=== PATIENT | male | born 1965 | race Caucasian/White ===

== ENCOUNTER 2023-03-14 09:51 | Emergency (ER) | payer OTHER, SELFPAY ==
[2023-03-14] VITALS (7 sets, daily range): BP systolic 119–176; BP diastolic 80–107; PULSE 85–108; RESP 15–19; TEMP 37–38.3; O2SAT 95–98; BMI 30.1
--- NOTE | 2023-03-14 | ECG_ITS ---
Test Reason : HEADACHE Blood Pressure : / mmHG Vent. Rate : 093 BPM Atrial Rate : 093 BPM P-R Int : 146 ms QRS Dur : 096 ms QT Int : 376 ms P-R-T Axes : 033 -36 059 degrees QTc Int : 467 ms Normal sinus rhythm Left axis deviation Moderate voltage criteria for LVH, may be normal variant ( R in aVL , Alonso product ) Abnormal ECG No previous ECGs available Referred By: Generic ED Physician Electronically Signed By:CLAUDETTE MANE
--- NOTE | ~2023-03-14 | XR_ITS ---
EXAMINATION: XR CHEST CLINICAL INFORMATION: Cough and fever. COMPARISON: 05/03/2015 TECHNIQUE: Frontal view of the chest was obtained. FINDINGS: The lungs are well expanded. No focal consolidation. No pleural effusion. Cardiac silhouette is unchanged. XR/XR chest 1V IMPRESSION: No acute abnormality.
--- NOTE | ~2023-03-14 | CT_ITS ---
EXAMINATION: CT HEAD WITHOUT CONTRAST CLINICAL INFORMATION: [place] headache. COMPARISON: None available. TECHNIQUE: Contiguous axial imaging was performed from the skull base to vertex without intravenous administration of contrast. This CT examination was performed using dose optimization techniques as appropriate, variously including the following: *Automated exposure control *Adjustment of mA and/or kV according to patient size (this includes techniques or standardized protocols for targeted exams where dose is matched to indication/reason for exam; i.e. extremities or head) *Use of iterative reconstruction technique DLP: 724 mGy-cm FINDINGS: There is no acute intra-axial, extra-axial bleed, masses or midline shift. There is no acute infarction in evolution. There is no edema. The frost to white matter differentiation is maintained normal. The lateral ventricles are symmetrical in size and configuration without enlargement. Bone windows reveal no calvarial abnormality. The paranasal sinuses and mastoid air cells are well-aerated. There is no scalp soft tissue abnormality. CT/CT head/brain wo IV con IMPRESSION: No acute intracranial process seen.
--- NOTE | 2023-03-14 11:07 | ED_ITS ---
HPI - Syncope General Chief Complaint: Dizziness Stated Complaint: SYNCOPAL EPISODE BACK PAIN Time Seen by Provider: 03/14/23 10:37 Source: patient and family Mode of arrival: EMS Limitations: no limitations History of Present Illness HPI narrative: 58 yo male with PMH of HTN who has been ill for the last 5 days with chills, diffuse back pain, sore throat and poor PO intake. He has also had a persistent headache that will not go away with tylenol. He is vaccinated against COVID and the flu. He has been drinking a lot of coffee and last night drank coffee before bed then still having the headache and heat feeling in his head at 3am had more coffee. This AM while shaving he felt so weak that he almost passed out x 2 and had to lay himself down on the ground. He did not have a LOC. He cannot get comfortable. He denies urinary symptoms, IVDA and has no indwelling hardware. He notes a bruise x 2 (not petechia on R posterior ribs) denies trauma. MD complaint: almost passed out Onset (ago): hour(s) (1) -: second(s) Prodromal symptoms: lightheaded Witnessed: No Context: standing up Injuries sustained associated with event: none Current symptoms: headache and weakness Treatments prior to arrival: none Related Data Previous Rx's Medication Instructions Recorded cyclobenzaprine 10 mg tablet 10 mg PO TID PRN muscle spasm #20 03/14/23 tabs ondansetron 4 mg disintegrating 4 mg PO Q8H PRN nausea and 03/14/23 tablet vomiting #20 tabs Allergies Allergy/AdvReac Type Severity Reaction Status Date / Time No Known Allergies Allergy Unverified 11/11/19 15:34 [No Known Allergies*] Review of Systems 2 Review of Systems: Constitutional : No Fever, pos Chills, pos Fatigue ENT/Mouth : No sore throat, No Rhinorrhea Eyes: No Eye Pain, No Swelling, No Redness Cardiovascular : No Chest Pain, No SOB, No Dyspnea on Exertion Respiratory : pos Cough, No Sputum Gastrointestinal : No Nausea, No Vomiting, No Diarrhea, No abdominal Pain Genitourinary : No Dysuria, No Urinary Frequency, No Hematuria, Musculoskeletal : No joint pain, No Myalgias, No Joint Swelling Skin : No Skin Lesions, No rash Neuro : No Weakness, No Numbness, No Dizziness, positive Headache Psych : No Anxiety/Panic, No Depression Heme/Lymph: No Bruising, No Bleeding,No Lymphadenopathy Endocrine : No Polyuria, No Polydipsia All other systems reviewed and are negative PMFSH Past Medical History Attestation statement: The following information was validated with the patient. Source: old records reviewed Onset Date is defined in the Problem List Problems that require an onset date and time if occurred within 24 hrs of arrival to the ED Aortic Dissection and Rupture; Neurologic impairment; Cardiopulmonary Arrest; Endotracheal Intubation; Insertion or Replacement of Mechanical Circulatory Assist Device Medical History Hypertension Social History Social History Smoked in Last 30 Days: No Use of substances other than those prescribed or required for medical reasons: No Advance Directives: No Advance Directives Information Provided: Yes Physical Exam 2 Vital Signs: Vital Signs: Last Vital Signs Temp 99.1 F 03/14/23 15:21 Pulse 86 03/14/23 15:21 Resp 19 03/14/23 15:21 BP 134/83 03/14/23 15:21 Pulse Ox 95 03/14/23 15:21 O2 Del Method Room Air 03/14/23 15:21 BMI result Body Mass Index 30.1 Appearance: Alert. Oriented X3. No acute distress. Eyes: Pupils equal, round and reactive to light. ENT: Pharynx dry MM Neck: Normal inspection. Neck supple. no meningeal signs CVS: Normal heart rate and rhythm. Pulses normal. Respiratory: No respiratory distress. Breath sounds normal. Abdomen: Soft and non-tender. Back: L posterior ribs non petechial bruise noted then just inferior small circular bruise noted as well Skin: Skin warm and dry. Normal skin color. Normal skin turgor. Extremities: No lower extremity edema. No calf ttp Neuro: Oriented X 3. No motor deficit. No sensory deficit. Course Course Course Narrative: CT done for severe headache but suspect due to flu B Medications Administered Discontinued Medications Generic Name Dose Route Start Last Admin Trade Name Freq PRN Reason Stop Dose Admin Sodium Chloride 1,000 mls @ 999 mls/hr 03/14/23 11:00 03/14/23 13:51 Ns IVCONT 03/14/23 13:00 Infused .Q1H1M HAN Infusion Ibuprofen 600 mg 03/14/23 13:28 03/14/23 13:49 Ibuprofen 600 Mg Tablet PO 03/14/23 13:29 600 mg ONCE ONE Administration Morphine Sulfate 4 mg 03/14/23 10:48 03/14/23 12:10 Morphine Sulfate 4 Mg/Ml Cartridge IVPUSH 03/14/23 10:49 4 mg ONCE ONE Administration Protocol Ondansetron HCl 4 mg 03/14/23 10:48 03/14/23 12:11 Ondansetron Hcl 4 Mg/2 Ml Vial IVPUSH 03/14/23 10:49 4 mg ONCE ONE Administration Medical Decision Making Medical Decision Making [facility] Narrative: 58 yo male with PMH of HTN here with viral like illness for 5 days who has been drinking a lot of coffee - he is neuro intact at this time no meningeal signs he was near syncope today but is not drinking much other than coffee he could be dehydrated. At this time will obtain labs, hydrate, viral panel, UA, CXR and IVF x 2L with IV morphine for pain. As for back pain he has no IVDA it is not midline and no prior hardware without cauda equina symptoms. He has benign abdomen. His headache seems viral and has been 5 days if no improvement with morphine might need CT head for mass. Differential Diagnosis Differential Diagnoses: The differential diagnosis associated with the presentation includes dehydration, ALFIE, near syncope, viral syndrome Admission/Observation Consideration of admission/observation: Escalation of care including admission/observation considered feels much better not toxic, tolerating PO stable for DC Lab Data [facility] Lab Attestation statement: I reviewed the patient's lab results. 03/14/23 11:36 03/14/23 12:48 Labs: Lab Results 03/14/23 03/14/23 03/14/23 Range/Units 11:36 11:39 12:48 WBC 6.3 (4.8-10.8) X10*3/uL RBC 5.79 (4.60-5.80) X10*6/uL Hgb 17.3 (14.0-18.0) g/dl Hct 50.3 (42.0-52.0) % MCV 86.9 (80.0-98.0) fL MCH 29.9 (27.0-33.0) pg MCHC 34.4 (31.0-36.0) g/dl RDW 13.9 (11.0-16.0) % Plt Count 213 (160-400) X10*3/uL MPV 10.1 (9.4-12.4) fL Immature Gran % (Auto) 0.3 (0.0-0.4) % Neut % (Auto) 80.1 H (45-73) % Lymph % (Auto) 8.1 L (20-40) % Bryan % (Auto) 11.3 H (2-11) % Eos % (Auto) 0.0 (0-4) % Baso % (Auto) 0.2 (0-2) % Lymph # (Auto) 0.5 L (1.2-4.9) X10*3/uL Bryan # (Auto) 0.7 (0.1-1.2) X10*3/uL Eos # (Auto) 0.0 (0.0-0.4) X10*3/uL Baso # (Auto) 0.0 (0.0-0.2) X10*3/uL Abs Immat Gran (auto) 0.02 (0.00-0.03) X10*3/uL Absolute Neuts (auto) 5.0 (2.0-8.3) x10*3/uL Absolute Nucleated RBC 0.000 (0.0-0.012) X10*3/uL Nucleated RBC % (auto) 0.0 (0.0-0.2) /100WBC D-Dimer High Sensitivty < 150 NG/ML Sodium 137 (135-145) mmol/L Potassium 3.7 (3.3-5.1) mmol/L Chloride 101 (96-108) mmol/L Carbon Dioxide 27 (22-29) mmol/L Anion Gap 13 (12-20) BUN 13 (9-16) mg/dL Creatinine 0.84 (0.5-1.4) mg/dL Estim Creat Clear Calc 107.6 Estimated GFR > 60 Random Glucose 93 (60-115) mg/dL Lactic Acid 1.5 (0.5-2.0) mmol/L Calcium 8.3 L (8.4-10.2) mg/dL Magnesium 1.9 (1.6-2.6) mg/dL Total Bilirubin 0.2 (0.0-1.0) mg/dL Direct Bilirubin < 0.2 (0.0-0.5) mg/dL AST 20 (5-37) U/L ALT 25 (0-40) U/L Alkaline Phosphatase 56 (39-117) U/L Troponin I High Sens 8.1 (<3.5-35.0) ng/L Total Protein 6.9 (6.5-8.0) g/dL Albumin 3.7 (3.5-5.0) g/dL Lipase 25 (8-78) U/L Urine Color Yellow Urine Appearance Clear Urine pH 6.5 (5.0-9.0) Ur Specific [place] 1.020 (1.005-1.025) Urine Protein 30 (1+) H (Neg-Trace) mg/dL Urine Glucose (UA) Negative (Negative) mg/dL Urine Ketones Negative (Negative) mg/dL Urine Blood Negative (Negative) Urine Nitrite Negative (Negative) Ur Leukocyte Esterase Negative (Negative) Urine RBC 0-2 (0-2) /HPF Urine WBC 0-5 (0-5) /HPF Ur Squamous Epith Cells 0-2 (0-2) /HPF Urine Bacteria None Seen (None Seen) Hyaline Casts 0-2 (0-2) /LPF COVID-19 (STEVE) Negative (Negative) COVID-19 Clin Com See Note Influenza Type A (KEIRY) Negative (Negative) Influenza Type B (KEIRY) Positive A (Negative) Influenza A & B Note See Note S. pyogenes GrpA KEIRY Negative (Negative) Independent Interpretation I performed an independent interpretation of an: EKG, Plain X-Ray and CT Scan (no ICH) Radiology Impression Discussion of test interpretation with radiology: I have reviewed the radiologist's reading. Independent Historian Clinical information obtained from an independent historian. History obtained from or confirmed by: Spouse Critical Care Time Critical Care Time Critical Care Time: Yes Total Critical Care Time: 45 Attestation: IVF x 2L, IV morphine improved pain, fluid resuscitation I attest to this time spent taking care of the patient Discharge Plan Discharge Clinical Impression: Influenza B, Near syncope Patient Disposition: Home, Self-Care Instructions: Influenza (ED), Near Syncope (ED) Additional Instructions: drink plenty of fluids. alternate tylenol and motrin for fevers and body aches, rest and stay hydrated. decrease the coffee intake 1 or 2 cups is okay return for chest pain trouble breathing confusion worsening pain or any other concerns. monitor the bruises that you have and that they do not spread Prescriptions: New cyclobenzaprine 10 mg tablet 10 mg PO TID PRN (Reason: muscle spasm) Qty: 20 0RF ondansetron 4 mg tablet,disintegrating 4 mg PO Q8H PRN (Reason: nausea and vomiting) Qty: 20 0RF Stand Alone Forms: Work/School Release
[2023-03-14] MEDS: 0.9 % Sodium Chloride 1,000 ML 999 ML IVCONT ×2 (11:40→12:48)
[2023-03-14 11:44] LABS: MANUAL DIFF FLAG NO
[2023-03-14 11:52] LABS: Basophils Percent Auto 0.2 % (0-2); Hematocrit 50.3 % (42.0-52.0); Hemoglobin 17.3 g/dl (14.0-18.0); Imm Gran Abs Auto 0.02 X10*3/uL (0.00-0.03); Imm Gran Pct Auto 0.3 % (0.0-0.4); Lymphocytes Absolute Auto 0.5 X10*3/uL (1.2-4.9); Lymphocytes Percent Auto 8.1 % (20-40); Mean Corpuscular HGB Conc 34.4 g/dl (31.0-36.0); Mean Corpuscular Hemoglobin 29.9 pg (27.0-33.0); Mean Corpuscular Volume 86.9 fL (80.0-98.0); Mean Platelet Volume 10.1 fL (9.4-12.4); Monocytes Absolute Auto 0.7 X10*3/uL (0.1-1.2); Monocytes Percent Auto 11.3 % (2-11); Neutrophils Percent Auto 80.1 % (45-73); Platelet Count 213 X10*3/uL (160-400); Red Blood Count 5.79 X10*6/uL (4.60-5.80); Red Cell Distribution Width 13.9 % (11.0-16.0); White Blood Count 6.3 X10*3/uL (4.8-10.8)
[2023-03-14 11:56] LABS: D Dimer High Sensitivity < 150 NG/ML
[2023-03-14 11:59] LABS: Lactic Acid 1.5 mmol/L (0.5-2.0)
[2023-03-14 12:04] LABS: COVID-19 Test Negative (Negative); IDNOW Serial# 08D9AD1C; IDNOW Serial# 58CA691E; Strep A Nucleic Acid Negative (Negative)
[2023-03-14] MEDS: Morphine Sulfate 4 MG/ML CARTRIDGE IVPUSH (12:10)
[2023-03-14 12:11] LABS: Troponin-I High Sensitivity 8.1 ng/L (<3.5-35.0)
[2023-03-14] MEDS: ondansetron HCL 4 MG/2 ML VIAL IVPUSH (12:11)
[2023-03-14 12:22] LABS: IDNOW Serial# 9DB6401D; Influenza A Negative (Negative); Influenza B2 Positive (Negative)
[2023-03-14 12:59] LABS: Appearance Urine Clear; Color Urine Yellow; Glucose Urine UA Negative (Negative); Leukocyte Esterase Urine Negative (Negative); Nitrite Urine Negative (Negative); PH 6.5 (5.0-9.0); UMIC TRIGGER UACC YES; Urine Blood Negative (Negative); Urine Ketones Negative (Negative); Urine Protein 30 (1+) mg/dL (Neg-Trace)
[2023-03-14 13:04] LABS: Anion Gap 13 (12-20)
[2023-03-14 13:08] LABS: Bacteria Urine None Seen (None Seen); Hyaline Casts Urine 0-2 /LPF (0-2); RBC Urine 0-2 /HPF (0-2); Squamous Epithelial Cell Urine 0-2 /HPF (0-2); WBC Urine 0-5 /HPF (0-5)
[2023-03-14 13:13] LABS: Alanine Aminotransferase 25 U/L (0-40); Albumin Level 3.7 g/dL (3.5-5.0); Alkaline Phosphatase 56 U/L (39-117); Aspartate Amino Transferase 20 U/L (5-37); Bilirubin Direct < 0.2 mg/dL (0.0-0.5); Bilirubin Total 0.2 mg/dL (0.0-1.0); Blood Urea Nitrogen 13 mg/dL (9-16); Calcium 8.3 mg/dL (8.4-10.2); Carbon Dioxide 27 mmol/L (22-29); Chloride 101 mmol/L (96-108); Creatinine Clr Calc Pharmacy 107.6; Estimated Glomerular Filt Rate > 60; Glucose Random 93 mg/dL (60-115); Lipase 25 U/L (8-78); Magnesium 1.9 mg/dL (1.6-2.6); Potassium 3.7 mmol/L (3.3-5.1); Sodium 137 mmol/L (135-145); Total Protein 6.9 g/dL (6.5-8.0)
--- NOTE | 2023-03-14 13:13 | PC.NURSE ---
pt alert and oriented. complains of weakness and dizziness with headache, back pain and abd pain x 5 days. Pt says his headache is very painful. labs and EKG done, urine sent. IV inserted left AC, medicated per mar and fluids infusing. pt flu positive, precautions in place
[2023-03-14] MEDS: Ibuprofen 600 MG TABLET PO (13:49)
== END 2023-03-14 17:10 | disposition home or self-care (01) ==
PROVIDERS: Emergency Provider Emergency Medicine; PCP Nurse Practitioner Family
DX: J10.1 Influenza due to other identified influenza virus with other respiratory manifestations (principal); R55 Syncope and collapse; Z11.52 Encounter for screening for COVID-19; I10 Essential (primary) hypertension
CPT/HCPCS: 70450; 71045; 80048; 80076; 81001; 83605; 83690; 83735; 84484; 85025; 85379; 87040; 87502; 87635; 87651; 93005; 96374; 96375; 99284; 99285; J2270; J2405

== ENCOUNTER → 2023-03-14 10:21 | Outpatient (BNV) | payer OTHER, SELFPAY | PROVIDERS: Emergency Provider Emergency Medicine; PCP Nurse Practitioner Family; Visit Provider Internal Medicine | DX: R51.9 Headache, unspecified (principal) | CPT/HCPCS: 93010 ==